=== PATIENT | male | born 1995 | race Caucasian/White ===

== ENCOUNTER 2021-07-05 13:48 | Emergency (ER) | payer OTHER ==
[~2021-07-05] VITALS: Ht 185.4 cm; Wt 79.4 kg
--- NOTE | 2021-07-05 14:36 | NUR ---
CALLED IN ED WAITING ROOM. NO RESPONSE.
--- NOTE | 2021-07-05 14:41 | NUR ---
PT LEFT BEFORE GETTING TRIAGE.
[2021-07-05 15:41] VITALS: BP 113/80
--- NOTE | 2021-07-05 17:13 | NUR ---
SEEN AND EVALUATED BY DR MARQUES. PROVIDED W/ COPY OF PATIENT COVID TEST RESULT. PT DISCHARGED IN STABLE CONDITION.
== END 2021-07-05 17:16 | disposition home or self-care (01) ==
LOC: ER 13:48 → EDBD 13:48 → ER 14:43
DX: U07.1 COVID-19 (principal)
CPT/HCPCS: C9803

== ENCOUNTER 2021-07-09 23:58 | Emergency (ER) | payer OTHER ==
[~2021-07-09] VITALS: Ht 185.4 cm; Wt 79.4 kg
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
[2021-07-10] MEDS ORDERED: IV NS 0.9% 1,000 ML BAG IV ONE (00:30)
[2021-07-10] MEDS ORDERED: ONDANSETRON HCL/PF 4 MG/2 ML VIAL IVP ONE (00:30)
[2021-07-10] MEDS ORDERED: PANTOPRAZOLE 80 MG in IV NS 0.9% 500 ML IV ONE (00:30)
--- NOTE | 2021-07-10 00:30 | NUR ---
18G IV LINE INITIATED IN LAC. PATENT AND INTACT. BLOOD DRAWN AND SENT TO LAB.
[2021-07-10] MEDS ORDERED: PANTOPRAZOLE 40 MG VIAL ONE (00:31)
[2021-07-10] MEDS ORDERED: ONDANSETRON HCL/PF 4 MG/2 ML VIAL ONE (00:31)
--- NOTE | 2021-07-10 00:42 | NUR ---
[employer] AT BEDSIDE
[2021-07-10] MEDS ORDERED: IOHEXOL-300 100 ML VIAL IV ONE (00:45)
[2021-07-10] MEDS ORDERED: IV NS 0.9% 250 ML IV ONE (00:45)
[2021-07-10 00:49] LABS: BASOPHILS # (AUTO) 0.1 K/uL (0.0-0.2); BASOPHILS % (AUTO) 0.6 % (0.0-2.0); EOSINOPHILS % (AUTO) 1.4 % (0.0-6.0); HEMATOCRIT 47 % (39-51); HEMOGLOBIN 16.1 g/dL (13.5-17.5); LYMPHOCYTES # (AUTO) 3.1 K/uL (0.8-4.8); LYMPHOCYTES % (AUTO) 20.7 % (20.0-44.0); MEAN CORPUSCULAR HGB CONC 34 g/dl (31.0-36.0); MEAN CORPUSCULAR VOLUME 90 fL (80-96); MONOCYTES # (AUTO) 1.1 K/uL (0.1-1.30); MONOCYTES % (AUTO) 7.5 % (2.0-12.0); NEUTROPHILS # (AUTO) 10.4 K/uL (1.8-8.9); NEUTROPHILS % (AUTO) 69.8 % (43.0-81.0); PLATELET COUNT (AUTO) 512 K/uL (150-450); RED BLOOD CELL COUNT(AUTO) 5.27 MIL/uL (4.5-6.0); WHITE BLOOD COUNT (AUTO) 14.9 K/uL (4.3-11.0)
--- NOTE | 2021-07-10 01:05 | NUR ---
COVID SWAB AND URINE SENT TO LAB
--- NOTE | 2021-07-10 01:07 | NUR ---
PT BEING TRANSPORTED TO CT VIA [facility]
[2021-07-10 01:12] LABS: CALCIUM, SERUM 9.3 mg/dL (8.5-10.1); CARBON DIOXIDE 27 mmol/L (21-32); CHLORIDE 101 mmol/L (98-107); CREATININE 1.5 mg/dL (0.6-1.3); GLUCOSE 137 mg/dL (74-106); POTASSIUM 3.7 mmol/L (3.5-5.1); SODIUM SERUM 137 mmol/L (136-145); UREA NITROGEN, BLOOD 17 mg/dL (7-18)
[2021-07-10 01:18] LABS: ALANINE AMINOTRANSFERASE 173 U/L (12-78); ALKALINE PHOSPHATASE 80 U/L (46-116); ASPARTATE AMINOTRANSFERASE 92 U/L (15-37); BILIRUBIN,DIRECT 0.2 mg/dL (0.0-0.2); BILIRUBIN,TOTAL 0.4 mg/dL (0.2-1.0); LIPASE 61 U/L (73-393); TOTAL PROTEIN, SERUM 8.1 g/dL (6.4-8.2)
[2021-07-10 01:18] LABS: BILIRUBIN,URINE NEGATIVE (NEGATIVE); COLOR,URINE YELLOW (YELLOW); LEUKOCYTE ESTERASE ,URINE NEGATIVE (NEGATIVE); NITRITE, URINE NEGATIVE (NEGATIVE); PROTEIN,URINE 30 mg/dl (NEGATIVE); UGLUCOSE NEGATIVE (NEGATIVE)
--- NOTE | 2021-07-10 01:20 | NUR ---
PT RETURNED FROM CT
[2021-07-10] MEDS ORDERED: HYDROMORPHONE 1 MG/1 ML DISP.SYRIN ONE (01:58)
[2021-07-10] MEDS ORDERED: LORAZEPAM INJ 2 MG/ML VIAL ONE (01:58)
[2021-07-10] MEDS ORDERED: HYDROMORPHONE 1 MG/1 ML DISP.SYRIN IV ONE (02:00)
[2021-07-10] MEDS ORDERED: LORAZEPAM INJ 2 MG/ML VIAL IV ONE (02:00)
[2021-07-10 02:35] LABS: OCCULT BLOOD STOOL NEGATIVE (NEGATIVE)
[2021-07-10] MEDS ORDERED: HYDR-3980 PO (02:40)
[2021-07-10] MEDS ORDERED: LORA-259 PO (02:40)
--- NOTE | 2021-07-10 03:06 | NUR ---
Patient discharged to home in stable condition. Written and verbal after care instructions given. Patient verbalizes understanding of instruction.
[2021-07-10 03:08] VITALS: BP 127/85
== END 2021-07-10 03:09 | disposition home or self-care (01) ==
LOC: ER 07-10 00:04
DX: Z04.71 Encounter for examination and observation following alleged adult physical abuse (principal); R55 Syncope and collapse; F17.210 Nicotine dependence, cigarettes, uncomplicated; R00.0 Tachycardia, unspecified; R07.89 Other chest pain; R10.9 Unspecified abdominal pain; Z20.822 Contact with and (suspected) exposure to COVID-19
CPT/HCPCS: 36415; 70450; 71045; 74177; 80048; 80076; 80307; 81003; 82272; 83690; 84484; 85025; 85730; 86850; 87426; 93005; 96365; 96366; 96375; 99285; 99406; C9113; C9803; J1170; J2060; J2405; J7030; J7040; J7050; Q9967

== ENCOUNTER 2023-10-26 10:36 | Emergency (ER) | payer OTHER ==
[~2023-10-26] VITALS: Ht 185.4 cm; Wt 79.4 kg
[~2023-10-26 10:36] MED LIST: HYDR-3980 PO; LORA-259 PO
[2023-10-26] MEDS: IBUPROFEN 600 MG TABLET PO ONE (11:00)
[2023-10-26] MEDS ORDERED: IBUPROFEN 600 MG TABLET ONE (12:14)
[2023-10-26] MEDS ORDERED: METOCLOPRAMIDE HCL 10 MG/2 ML VIAL IM ONE (13:00)
[2023-10-26] MEDS ORDERED: ONDANSETRON HCL/PF 4 MG/2 ML VIAL ONE (13:03)
[2023-10-26] MEDS: ONDANSETRON HCL/PF - ER 4 MG/2 ML VIAL IV ONE (13:12)
[2023-10-26 13:30] LABS: CALCIUM, SERUM 9.3 mg/dL (8.5-10.1); CREATININE 0.8 mg/dL (0.6-1.3)
[2023-10-26 13:36] LABS: ALBUMIN 3.6 g/dL (3.4-5.0); BILIRUBIN,TOTAL 0.5 mg/dL (0.2-1.0); TOTAL PROTEIN, SERUM 8.5 g/dL (6.4-8.2)
[2023-10-26 13:38] LABS: BASOPHILS % (AUTO) 0.3 % (0.0-2.0); HEMATOCRIT 44 % (39-51); HEMOGLOBIN 14.9 g/dL (13.5-17.5); LYMPHOCYTES # (AUTO) 1.5 K/uL (0.8-4.8); LYMPHOCYTES % (AUTO) 8.4 % (20.0-44.0); MEAN CORPUSCULAR HEMOGLOBIN 28 PG (26.0-33.0); MEAN CORPUSCULAR HGB CONC 34 g/dl (31.0-36.0); MEAN CORPUSCULAR VOLUME 83 fL (80-96); MONOCYTES # (AUTO) 0.8 K/uL (0.1-1.30); MONOCYTES % (AUTO) 4.9 % (2.0-12.0); NEUTROPHILS # (AUTO) 15.1 K/uL (1.8-8.9); NEUTROPHILS % (AUTO) 86.4 % (43.0-81.0); PLATELET COUNT (AUTO) 473 K/uL (150-450); RED BLOOD CELL COUNT(AUTO) 5.25 MIL/uL (4.5-6.0); RED CELL DISTRIBUTION WIDTH 13.1 % (11.5-15.0); WHITE BLOOD COUNT (AUTO) 17.5 K/uL (4.3-11.0)
[2023-10-26] MEDS: POTASSIUM CHLORIDE 20 MEQ TAB.PRT.SR PO ONE (14:45)
[2023-10-26] MEDS: BUPRENORPHINE HCL 8 MG TAB.SUBL SL ONE (14:45)
[2023-10-26] MEDS ORDERED: BUPRENORPHINE HCL 8 MG TAB.SUBL SL ONE (15:01)
[2023-10-26] MEDS ORDERED: POTASSIUM CHLORIDE 20 MEQ TAB.PRT.SR PO ONE (15:01)
[2023-10-26 15:03] LABS: LACTIC ACID 1.6 mmol/L (0.4-2.0)
[2023-10-26] MEDS ORDERED: IOHEXOL-300 100 ML VIAL IV ONE (15:28)
[2023-10-26] MEDS ORDERED: IV NS 0.9% 250 ML IV ONE (15:28)
[2023-10-26] MEDS ORDERED: HALOPERIDOL LACTATE INJ 5 MG/ML VIAL ONE (16:55)
[2023-10-26] MEDS ORDERED: HALOPERIDOL LACTATE INJ 5 MG/ML VIAL IV ONE (17:00)
[2023-10-26 17:07] VITALS: BP 126/69; TEMP 98.2; O2SAT 100
== END 2023-10-26 17:08 ==
LOC: ER 10:41
DX: G89.29 Other chronic pain (principal); M54.50 Low back pain, unspecified; F13.239 Sedative, hypnotic or anxiolytic dependence with withdrawal, unspecified; R11.10 Vomiting, unspecified; E87.6 Hypokalemia; D72.829 Elevated white blood cell count, unspecified; Z60.2 Problems related to living alone
CPT/HCPCS: 99285; 74177; 96374; 71045; 72100; 85025; 87040 ×2; 83605; 83690; 83735; 36415; 80053; J1630; J2405; J7050; Q9967